=== PATIENT | male | born 1995 | race Caucasian/White ===

== ENCOUNTER 2016-10-07 04:09 | Emergency (ER) | payer BC ==
[2016-10-07] MEDS ORDERED: Ketorolac 30 MG/ML SDV IVPUSH ONE (04:56)
--- NOTE | 2016-10-07 04:57 | EDM.PDOC ---
<Rodrigo Ha - Last Filed: 10/07/16 07:16> ED HPI GENERAL MEDICAL PROBLEM - General Chief Complaint: Abdominal Pain Stated Complaint: LOWER RIGHT SIDE ABDOMINAL PAIN Time Seen by Provider: 10/07/16 04:35 Source of Information: Reports: Patient History Limitations: Reports: No Limitations - History of Present Illness INITIAL COMMENTS - FREE TEXT/NARRATIVE: HISTORY AND PHYSICAL: History of present illness: 21-year-old male with no significant past medical history and no prior abdominal history now complaining of sudden onset of abdominal pain in the middle of night which started suddenly immediately after ejaculating. Patient felt a weird sensation and then suprapubic pressure and then significant pain since. He had nausea and vomiting but no fevers chills sweats or shaking chills. No diarrhea. Patient was not ill and prior to his being sexually active he felt baseline. Review of systems: As per history of present illness and below otherwise all systems reviewed and negative. Past medical history: As per history of present illness and as reviewed below otherwise noncontributory. Surgical history: As per history of present illness and as reviewed below otherwise noncontributory. Social history: No reported history of drug or alcohol abuse. Family history: As per history of present illness and as reviewed below otherwise noncontributory. Physical exam: HEENT: Normocephalic, atraumatic, pupils normal and symmetrical, supple neck, no meningismus, normal color Lungs: Normal and symmetrical chest wall excursion bilateral with no tachypnea or increased work of breathing, grossly normal chest exam Heart: No tachycardia in triage Abdomen: Normal-appearing, nondistended, no visible mass or asymmetry, minimal diffuse tenderness no guarding or rebound. Normal bowel sounds. Nondistended no megaly Pelvis: Normal-appearing Genitourinary: Deferred Rectal exam: Deferred Extremities: Atraumatic, normal use and range of motion, no visible evidence of gross neurovascular compromise Neuro: Awake, alert, oriented. Normal and appropriate mental status. Cranial nerves grossly unremarkable. Motor function normal. Nonfocal neurologic exam. Diagnostics: [CT of the abdomen and pelvis pending Full laboratory workup pending] Therapeutics: [Toradol IV] Impression: [Abdominal pain] Plan: [Signs and symptoms consistent with possible retrograde ejaculation potentially with bladder spasm and resultant abdominal pain. No history of intra-abdominal pathology. Patient is hemodynamically stable. Full workup pending] CT returns with inability to visualize the appendix secondary to patient's paucity of intra-abdominal fat. Case discussed at length with Dr. Andre the teleradiology attending recommends by mouth contrast and repeat study after 1.5 hours, without which it will be impossible to definitively rule out appendicitis or other bowel pathology. Case discussed with Dr. Cunningham emergency medicine attending who will assume care reevaluate, further treatment in consultation as needed as well as disposition patient. Definitive disposition and diagnosis as appropriate pending reevaluation and review of above. Abdominal Pain Score (Numeric/FACES): 8 - Related Data Allergies Allergy/AdvReac Type Severity Reaction Status Date / Time No Known Allergies Allergy Verified 10/07/16 04:21 Home Meds: Home Meds . [No Known Home Meds] 10/07/16 [History] Past Medical History - Past Health History Medical/Surgical History: Denies Medical/Surgical History Social & Family History - Family History Family Medical History: Noncontributory - Tobacco Use Smoking Status *Q: Current Every Day Smoker Years of Tobacco use: 4 Packs/Tins Daily: 1 - Caffeine Use Caffeine Use: Reports: Soda Caffeine Use Comment: 2-3/day - Alcohol Use Days Per Week of Alcohol Use: 4 Number of Drinks Per Day: 2 Total Drinks Per Week: 8 - Recreational Drug Use Recreational Drug Use: No Course - Vital Signs Last Recorded V/S: Last Vital Signs Temp 36.4 C 10/07/16 06:36 Pulse 62 10/07/16 08:16 Resp 16 10/07/16 08:16 BP 111/67 10/07/16 08:16 Pulse Ox 98 10/07/16 08:16 - Orders/Labs/Meds Orders: Active Orders 24 hr Category Date Time Status Abdomen Pelvis w wo Cont [CT] Stat Exams 10/07/16 04:51 Taken Labs: Laboratory Tests 10/07/16 10/07/16 10/07/16 Range/Units 04:20 04:20 04:35 WBC 8.65 (4.0-11.0) K/uL RBC 4.63 (4.50-5.90) M/uL Hgb 14.9 (13.0-17.0) g/dL Hct 42.8 (38.0-50.0) % MCV 92.4 (80.0-98.0) fL MCH 32.2 H (27.0-32.0) pg MCHC 34.8 (31.0-37.0) g/dL RDW Std Deviation 42.4 (28.0-62.0) fl RDW Coeff of Hamlet 13 (11.0-15.0) % Plt Count 155 (150-400) K/uL MPV 11.10 (7.40-12.00) fL Neut % (Auto) 59.5 (48.0-80.0) % Lymph % (Auto) 28.3 (16.0-40.0) % Ceiba % (Auto) 8.4 (0.0-15.0) % Eos % (Auto) 3.5 (0.0-7.0) % Baso % (Auto) 0.3 (0.0-1.5) % Neut # (Auto) 5.1 (1.4-5.7) K/uL Lymph # (Auto) 2.5 H (0.6-2.4) K/uL Ceiba # (Auto) 0.7 (0.0-0.8) K/uL Eos # (Auto) 0.3 (0.0-0.7) K/uL Baso # (Auto) 0.0 (0.0-0.1) K/uL Nucleated RBC % 0.0 /100WBC Nucleated RBCs # 0 K/uL Sodium 141 (136-146) mmol/L Potassium 3.5 (3.5-5.1) mmol/L Chloride 110 (98-110) mmol/L Carbon Dioxide 21 (21-31) mmol/L BUN 12 (6.0-23.0) mg/dL Creatinine 0.9 (0.6-1.5) mg/dL Est Cr Clr Drug Dosing 139.49 mL/min Estimated GFR (MDRD) > 60.0 ml/min Glucose 116 H (60-110) mg/dL Calcium 9.2 (8.8-10.8) mg/dL Total Bilirubin 0.4 (0.1-1.5) mg/dL AST 39 (5-40) IU/L ALT 40 (8-54) IU/L Alkaline Phosphatase 65 (40-150) Total Protein 7.3 (6.0-8.0) g/dL Albumin 5.0 (3.5-5.0) g/dL Globulin 2.3 (2.0-3.5) g/dL Albumin/Globulin Ratio 2.2 (1.3-2.8) Lipase 28 (7-80) U/L Urine Color YELLOW Urine Appearance SLT CLOUDY Urine pH 7.0 (5.0-8.0) Ur Specific Sparks 1.020 (1.001-1.035) Urine Protein NEGATIVE (NEGATIVE) mg/dL Urine Glucose (UA) NEGATIVE (NEGATIVE) mg/dL Urine Ketones NEGATIVE (NEGATIVE) mg/dL Urine Occult Blood NEGATIVE (NEGATIVE) Urine Nitrite NEGATIVE (NEGATIVE) Urine Bilirubin NEGATIVE (NEGATIVE) Urine Urobilinogen 0.2 (<2.0) EU/dL Ur Leukocyte Esterase NEGATIVE (NEGATIVE) Urine RBC 0-3 (0-2/HPF) Urine WBC 0-1 (0-5/HPF) Ur Epithelial Cells RARE (NONE-FEW) Amorphous Sediment MODERATE (NEGATIVE) Urine Bacteria FEW (NEGATIVE) Meds: Medications Discontinued Medications Generic Name Dose Route Start Last Admin Trade Name Ricky PRN Reason Stop Dose Admin Iopamidol 92 ml 10/07/16 05:53 10/07/16 05:55 Isovue-370 (76%) IVPUSH 10/07/16 05:54 92 ml ONETIME STA Administration Ketorolac Tromethamine 30 mg 10/07/16 04:56 10/07/16 05:05 Toradol IVPUSH 10/07/16 04:57 30 mg ONETIME ONE Administration Departure - Departure Disposition: Against Medical Advice 07 Clinical Impression: Abdominal pain - Discharge Information Referrals: PCP,None [Primary Care Provider] - Forms: ED Department Discharge <Rene Whitlock - Last Filed: 10/07/16 08:38> ED HPI GENERAL MEDICAL PROBLEM - History of Present Illness INITIAL COMMENTS - FREE TEXT/NARRATIVE: Patient initialized by mouth contrast however was feeling much better and elected to sign out AGAINST MEDICAL ADVICE without actually performing the oral contrast CT study of his abdomen. Recommend that he return if symptoms persist or worsen follow-up with his primary care or urology ED ROS GENERAL - Review of Systems Review Of Systems: ROS reveals no pertinent complaints other than HPI. ED EXAM, GENERAL - Physical Exam Exam: See Below Departure - Departure Time of Disposition: 08:38 Condition: Fair
[2016-10-07 05:19] LABS: CHLORIDE,CL 110 mmol/L (98-110); SODIUM,NA 141 mmol/L (136-146)
[2016-10-07] MEDS ORDERED: Iopamidol 755 Mg/ML 100 ML Bottle IVPUSH STA (05:53)
[2016-10-07 08:17] VITALS: BP 111/67
--- NOTE | 2016-10-09 11:37 | CT ---
EXAM DATE: 10/07/16 PATIENT'S AGE: 21 Patient: OPAL WANG Facility: [place], [place] Site . Site : 1995 Study: CT Abdomen/Pelvis W/ and W/O Cont [id number]/[id number] 5:55:24 AM Ordering Physician: Doctor Sheriff Final Report: INDICATION: Right abdominal pain. TECHNIQUE: CT abdomen and pelvis with and without i.v. contrast. Coronal and sagittal reformats were obtained. COMPARISON: None FINDINGS: Lower chest: Unremarkable. Liver: Unremarkable. Spleen: Unremarkable. Pancreas: Unremarkable. Gallbladder and bile ducts: Unremarkable. Kidneys: Unremarkable. No kidney or ureteral stones and no hydronephrosis seen. Adrenal glands: Unremarkable. GI tract: Unremarkable. Evaluation of the bowel is limited in this patient due to the paucity of mesenteric and retroperitoneal fat. The appendix is not identified. Vascular: Unremarkable. Lymph nodes: Unremarkable. Miscellaneous: Unremarkable. No pneumoperitoneum is seen. No significant ascites is noted. Pelvic Organs: Unremarkable. Bones: Unremarkable for age. IMPRESSION: 1. Unremarkable CT appearance of the abdomen and pelvis. The appendix is not identified. Clinical follow up is recommended. Dictated by Nathanael Andre MD @ 10/07/2016 6:06:30 AM Prelim Report By Dr. Nathanael Andre @ 10/07/2016 6:06:51 AM ADDENDUM There are no definite inflammatory changes seen in the right lower quadrant but the sensitivity is diminished due to the paucity of intra-abdominal fat in this patient. This can also limit the sensitivity in detecting trace amounts of pneumoperitoneum as the bowel loops are collapsed and apposed to one another. I discussed this with Dr. Ha by telephone at 6:45 a.m. Dictated by: MD @ 10/07/2016 06:53:26 (Electronic Signature) Report Signed by Proxy. [facility] HOSPITALFady
== END 2016-10-07 08:28 | disposition left against medical advice (07) ==
LOC: MW.ED 04:09
DX: R10.9 Unspecified abdominal pain (principal); F17.210 Nicotine dependence, cigarettes, uncomplicated
CPT/HCPCS: 74178; 80053; 81001; 83690; 85025; 96374; 99284; J1885; Q9967

== ENCOUNTER 2017-04-06 17:04 | Emergency (ER) | payer BC ==
--- NOTE | 2017-04-06 17:28 | EDM.PDOC ---
ED HPI GENERAL MEDICAL PROBLEM - General Chief Complaint: Respiratory Problem Stated Complaint: HEADACHE, STOMACHE AND CHEST TIGHTNESS Time Seen by Provider: 04/06/17 17:12 Source of Information: Reports: Patient History Limitations: Reports: No Limitations - History of Present Illness INITIAL COMMENTS - FREE TEXT/NARRATIVE: HISTORY AND PHYSICAL: History of present illness: Patient is a 21-year-old male who presents to the emergency room today with multiple complaints. He states on 03/30/2017, he started to have hives and generalized body aches. He decided to go to the emergency room and [place], [place] on 04/03/2017, for the previously stated symptoms. That morning he developed some lightheadedness, shortness of breath, chest pain. He states that the ER did a nebulizer treatment, he felt somewhat improved at that time and he was discharged with an inhaler. At that time he says no lab or radiology imaging was done. Today he presents to the emergency room because he still has those symptoms and since has developed a productive cough and sore throat with subjective swelling. His girlfriend reports that he has been using his inhaler more than he is supposed to. He has been using it 3 times per hour when needed. Patient denies any fever, nausea, vomiting or diarrhea. Has not received the [id number] influenza vaccine Review of systems: As per history of present illness and below otherwise all systems reviewed and negative. Past medical history: As per history of present illness and as reviewed below otherwise noncontributory. Surgical history: As per history of present illness and as reviewed below otherwise noncontributory. Social history: No reported history of drug or alcohol abuse. Family history: As per history of present illness and as reviewed below otherwise noncontributory. Physical exam: Gen.: Well-developed and well-nourished 21-year-old male. Appears nontoxic and in no acute distress. Alert and oriented. HEENT: Atraumatic, normocephalic, pupils reactive, negative for conjunctival pallor or scleral icterus, mucous membranes moist, throat clear without erythema or exudate, neck supple, nontender, trachea midline. No trismus or drooling noted. Lungs: Clear to auscultation, breath sounds equal bilaterally, chest nontender. Heart: S1S2, regular rate and rhythm without overt murmurs Abdomen: Soft, nondistended, nontender. Negative for masses or hepatosplenomegaly. Negative for costovertebral tenderness. Pelvis: Stable nontender. Genitourinary: Deferred. Rectal: Deferred. Extremities: Atraumatic, moves all extremities per self, full range of motion, negative for cords or calf pain. Neurovascular unremarkable. Skin: No obvious lesions, masses, rashes. Intact, warm, dry. Neuro: Awake, alert, oriented. Cranial nerves II through XII unremarkable. Cerebellum unremarkable. Motor and sensory unremarkable throughout. Exam nonfocal. Patient is resting on the cot and drinking Mountain Dew, patient is on his cell phone during the interview. He breathes easy even in able to speak in full sentences without shortness of breath. All lab testing and x-ray are normal today. Will prescribe the patient with a Medrol Dosepak and Cataflam prescription. He may continue to use his rescue inhaler as needed. Advised him to only use 1-2 puffs every 4-6 hours as needed. Diagnostics: CBC, CMP, influenza, strep, 2 view chest x-ray Therapeutics: IV fluid, Solu-Medrol Impression: Viral illness Bronchitis Plan: 1. You may continue to use your inhaler as needed. Please limit it to 1-2 puffs every 4-6 hours. 2. Prescription for Medrol Dosepak, steroid, has been prescribed for you. Cataflam, anti-inflammatory, has also been prescribed for your body aches/chest discomfort. Please is do not take any additional NSAIDs such as ibuprofen or Aleve with this medication. You may take Tylenol as needed. 3. Continue with supportive care and increase her fluids. 4. Follow-up with your primary care provider in the next 1-2 days. Return to the ED as needed and as discussed. Definitive disposition and diagnosis as appropriate pending reevaluation and review of above. Duration: Week(s): (1) Location: Reports: Chest generalized Pain Score (Numeric/FACES): 5 - Related Data Allergies Allergy/AdvReac Type Severity Reaction Status Date / Time No Known Allergies Allergy Verified 04/06/17 17:27 Home Meds: Home Meds Albuterol Sulfate [Proair Hfa] 8.5 gm INH DAILY 04/06/17 [History] Cetirizine [ZyrTEC] 10 mg PO DAILY 04/06/17 [History] Ranitidine [Zantac] 150 mg PO DAILY 04/06/17 [History] Past Medical History - Past Health History Medical/Surgical History: Denies Medical/Surgical History Social & Family History - Family History Family Medical History: Noncontributory - Tobacco Use Smoking Status *Q: Current Every Day Smoker Years of Tobacco use: 4 Packs/Tins Daily: 1 - Caffeine Use Caffeine Use: Reports: Soda Caffeine Use Comment: 2-3/day - Alcohol Use Days Per Week of Alcohol Use: 4 Number of Drinks Per Day: 2 Total Drinks Per Week: 8 - Recreational Drug Use Recreational Drug Use: No ED ROS GENERAL - Review of Systems Review Of Systems: ROS reveals no pertinent complaints other than HPI. ED EXAM, GENERAL - Physical Exam Exam: See Below (See dictation) Course - Vital Signs Last Recorded V/S: Last Vital Signs Temp 97.7 F 04/06/17 17:24 Pulse 72 04/06/17 17:24 Resp 18 04/06/17 17:24 BP 130/73 04/06/17 17:24 Pulse Ox 98 04/06/17 17:24 - Orders/Labs/Meds Orders: Active Orders 24 hr Category Date Time Status Chest 2V [CR] Stat Exams 04/06/17 17:27 Taken CULTURE STREP A CONFIRMATION [RM] Stat Lab 04/06/17 16:00 Results STREP SCRN A RAPID W CULT CONF [RM] Stat Lab 04/06/17 16:00 Results Labs: Laboratory Tests 04/06/17 04/06/17 Range/Units 17:56 17:56 WBC 8.61 (4.0-11.0) K/uL RBC 4.91 (4.50-5.90) M/uL Hgb 15.7 (13.0-17.0) g/dL Hct 44.6 (38.0-50.0) % MCV 90.8 (80.0-98.0) fL MCH 32.0 (27.0-32.0) pg MCHC 35.2 (31.0-37.0) g/dL RDW Std Deviation 40.6 (28.0-62.0) fl RDW Coeff of [place] 12 (11.0-15.0) % Plt Count 135 L (150-400) K/uL MPV 11.00 (7.40-12.00) fL Neut % (Auto) 70.9 (48.0-80.0) % Lymph % (Auto) 16.8 (16.0-40.0) % Hunt % (Auto) 9.9 (0.0-15.0) % Eos % (Auto) 2.2 (0.0-7.0) % Baso % (Auto) 0.2 (0.0-1.5) % Neut # (Auto) 6.1 H (1.4-5.7) K/uL Lymph # (Auto) 1.5 (0.6-2.4) K/uL Hunt # (Auto) 0.9 H (0.0-0.8) K/uL Eos # (Auto) 0.2 (0.0-0.7) K/uL Baso # (Auto) 0.0 (0.0-0.1) K/uL Nucleated RBC % 0.0 /100WBC Nucleated RBCs # 0 K/uL Sodium 140 (136-146) mmol/L Potassium 4.6 (3.5-5.1) mmol/L Chloride 107 (98-110) mmol/L Carbon Dioxide 24 (21-31) mmol/L BUN 13 (6.0-23.0) mg/dL Creatinine 0.8 (0.6-1.5) mg/dL Est Cr Clr Drug Dosing 158.97 mL/min Estimated GFR (MDRD) > 60.0 ml/min Glucose 118 H (60-110) mg/dL Calcium 9.1 (8.8-10.8) mg/dL Total Bilirubin 1.0 (0.1-1.5) mg/dL AST 23 (5-40) IU/L ALT 21 (8-54) IU/L Alkaline Phosphatase 40 (40-150) Total Protein 7.7 (6.0-8.0) g/dL Albumin 4.7 (3.5-5.0) g/dL Globulin 3.0 (2.0-3.5) g/dL Albumin/Globulin Ratio 1.6 (1.3-2.8) Meds: Medications Discontinued Medications Generic Name Dose Route Start Last Admin Trade Name Freq PRN Reason Stop Dose Admin Sodium Chloride 1,000 mls @ 999 mls/hr 04/06/17 17:33 04/06/17 17:58 Normal Saline IV 04/06/17 18:33 999 mls/hr STAT ONE Administration Ketorolac Tromethamine 30 mg 04/06/17 17:51 04/06/17 17:58 Toradol IVPUSH 04/06/17 17:52 30 mg ONETIME ONE Administration Methylprednisolone Sodium Succinate 125 mg 04/06/17 17:33 04/06/17 17:58 Solu-Medrol IVPUSH 04/06/17 17:34 125 mg ONETIME ONE Administration Departure - Departure Time of Disposition: 18:37 Disposition: Home, Self-Care 01 Clinical Impression: Viral respiratory illness, Bronchitis - Discharge Information Referrals: PCP,None [Primary Care Provider] - Forms: ED Department Discharge Additional Instructions: My general discharge The following information is given to patients seen in the emergency department who are being discharged to home. This information is to outline your options for follow-up care. We provide all patients seen in our emergency department with a follow-up referral. The need for follow-up, as well as the timing and circumstances, are variable depending upon the specifics of your emergency department visit. If you don't have a primary care physician on staff, we will provide you with a referral. We always advise you to contact your personal physician following an emergency department visit to inform them of the circumstance of the visit and for follow-up with them and/or the need for any referrals to a consulting specialist. The emergency department will also refer you to a specialist when appropriate. This referral assures that you have the opportunity for follow-up care with a specialist. All of these measure are taken in an effort to provide you with optimal care, which includes your follow-up. Under all circumstances we always encourage you to contact your private physician who remains a resource for coordinating your care. When calling for follow-up care, please make the office aware that this follow-up is from your recent emergency room visit. If for any reason you are refused follow-up, please contact the [facility] Emergency Department at and asked to speak to the emergency department charge nurse. [facility] [address] [place] [id number] 1. You may continue to use your inhaler as needed. Please limit it to 1-2 puffs every 4-6 hours. 2. Prescription for Medrol Dosepak, steroid, has been prescribed for you. Cataflam, anti-inflammatory, has also been prescribed for your body aches/chest discomfort. Please is do not take any additional NSAIDs such as ibuprofen or Aleve with this medication. You may take Tylenol as needed. 3. Continue with supportive care and increase her fluids. 4. Follow-up with your primary care provider in the next 1-2 days. Return to the ED as needed and as discussed. - My Orders Last 24 Hours: My Active Orders 04/06/17 16:00 CULTURE STREP A CONFIRMATION [RM] Stat STREP SCRN A RAPID W CULT CONF [RM] Stat 04/06/17 17:27 Chest 2V [CR] Stat - Assessment/Plan Last 24 Hours: My Active Orders 04/06/17 16:00 CULTURE STREP A CONFIRMATION [RM] Stat STREP SCRN A RAPID W CULT CONF [RM] Stat 04/06/17 17:27 Chest 2V [CR] Stat
[2017-04-06] MEDS ORDERED: Sodium Chloride 0.9% 1,000 ML IV ONE (17:33)
[2017-04-06] MEDS ORDERED: methylPREDNISolone Sodium Succinate 125 MG/2 ML SDV IVPUSH ONE (17:33)
[2017-04-06] MEDS ORDERED: Ketorolac 30 MG/ML SDV IVPUSH ONE (17:51)
[2017-04-06 18:28] LABS: CHLORIDE,CL 107 mmol/L (98-110); SODIUM,NA 140 mmol/L (136-146)
[2017-04-06 18:56] VITALS: BP 133/63
--- NOTE | 2017-04-09 12:44 | CR ---
EXAM DATE: 04/06/17 PATIENT'S AGE: 21 Patient: OPAL WANG Facility: [place], [place] Site . Site : 1995 Study: XRay Chest [id number]/15/2017 6:05:43 PM Ordering Physician: Doctor Sheriff Final Report: CHEST 2 VIEWS INDICATION: Cough. IMPRESSION: Normal heart size and vascular pattern. Lungs are clear. No pneumothorax or pleural abnormality. Dictated by Steven Weir MD @ Apr 06 2017 6:25PM (Electronic Signature) Report Signed by Proxy. JEMAL
== END 2017-04-06 18:50 | disposition home or self-care (01) ==
LOC: MW.ED 17:04
DX: B34.9 Viral infection, unspecified (principal); J40 Bronchitis, not specified as acute or chronic; F17.210 Nicotine dependence, cigarettes, uncomplicated; Z79.899 Other long term (current) drug therapy
CPT/HCPCS: 71020; 80053; 85025; 87081; 87804; 87880; 96361; 96374; 96375; 99284; J1885; J2930; J7040

== ENCOUNTER 2018-08-21 17:29 | Emergency (ER) | payer BC ==
[2018-08-21] MEDS ORDERED: Diphtheria,Pertussis(Acell),Tetanus Vaccine 0.5 ML Syringe IM ONE (18:44)
--- NOTE | 2018-08-21 18:44 | EDM.PDOC ---
ED HPI GENERAL MEDICAL PROBLEM - General Chief Complaint: Laceration Stated Complaint: LEFT INDEX FINGER CUT Time Seen by Provider: 08/21/18 18:38 - History of Present Illness INITIAL COMMENTS - FREE TEXT/NARRATIVE: HISTORY AND PHYSICAL: History of present illness: The patient is a 23-year-old male who is right-hand dominant and unsure of his last tetanus shot and presents after cutting his left index finger while he was cutting an apple at home. This occurred several hours ago and it wouldn't stop bleeding so he came here for evaluation. He denies any other injuries. He has no neurosensory changes in the finger and is able to flex and extend. He was in his usual state of good health prior to these events. Review of systems: As per history of present illness and below otherwise all systems reviewed and negative. Past medical history: As per history of present illness and as reviewed below otherwise noncontributory. Surgical history: As per history of present illness and as reviewed below otherwise noncontributory. Social history: No reported history of drug or alcohol abuse. Family history: As per history of present illness and as reviewed below otherwise noncontributory. Physical exam: HEENT: Atraumatic, normocephalic, negative for conjunctival pallor or scleral icterus, mucous membranes moist, throat clear, neck supple, nontender, trachea midline. Lungs: Clear to auscultation, breath sounds equal bilaterally, chest nontender. Heart: S1S2, regular and rhythm no overt murmurs Abdomen: Soft, nondistended, nontender. Pelvis: Deferred Genitourinary: Deferred. Rectal: Deferred. Extremities: Atraumatic, full range of motion of all extremities with the exception of left index finger where at the distal tuft soft tissue there is a curved flap-like laceration seen which does not involve the nail or nailbed and measures approximately 2.5 cm and has some oozing of blood. The patient can flex at the tip of the finger and there are no palpable bony deformities and there was no crush injury with this. The remainder the digits are intact without tenderness defects or deformities as is the hand and the proximal forearm. Neurovascular unremarkable. Neuro: Awake, alert, oriented. Cranial nerves II through XII unremarkable. Cerebellum unremarkable. Motor and sensory unremarkable throughout. Exam nonfocal. Diagnostics: None Therapeutics: Tdap, wound cleansing, lidocaine without epinephrine for suturing, bacitracin and tube gauze Procedure note: After the wound was cleansed by nursing The area was iniltrated with a digital block with 1%lidocaine without epiephrine and the wound was exploed. No foreign bodies were appreciated. The skin edges were reapproxiated using a total number of #8 sutures in a simple interrupted fashion of 5-0 nylon . There were no complications and the patient tolerated the procedure well. Bacitracin and a tube gauze was applied by nursing. The procedure was performed by Cheryl Cody NP Impression: Left index finger laceration Definitive disposition and diagnosis as appropriate pending reevaluation and review of above. laceration to L index finger Pain Score (Numeric/FACES): 2 - Related Data Allergies Allergy/AdvReac Type Severity Reaction Status Date / Time No Known Allergies Allergy Verified 08/21/18 17:54 Home Meds: Home Meds . [No Known Home Meds] 08/21/18 [History] Past Medical History - Past Health History Medical/Surgical History: Denies Medical/Surgical History HEENT History: Reports: None Cardiovascular History: Reports: None Respiratory History: Reports: None Gastrointestinal History: Reports: None Genitourinary History: Reports: None Musculoskeletal History: Reports: None Neurological History: Reports: None Psychiatric History: Reports: None Endocrine/Metabolic History: Reports: None Hematologic History: Reports: None Immunologic History: Reports: None Oncologic (Cancer) History: Reports: None Dermatologic History: Reports: None - Past Surgical History Head Surgeries/Procedures: Reports: None HEENT Surgical History: Reports: None Cardiovascular Surgical History: Reports: None Respiratory Surgical History: Reports: None GI Surgical History: Reports: None Male Surgical History: Reports: None Endocrine Surgical History: Reports: None Neurological Surgical History: Reports: None Musculoskeletal Surgical History: Reports: None Dermatological Surgical History: Reports: None Social & Family History - Family History Family Medical History: Noncontributory - Tobacco Use Smoking Status *Q: Never Smoker - Caffeine Use Caffeine Use: Reports: Soda Caffeine Use Comment: 2-3/day - Recreational Drug Use Recreational Drug Use: No ED ROS GENERAL - Review of Systems Review Of Systems: ROS reveals no pertinent complaints other than HPI. ED EXAM, SKIN/RASH Exam: See Below (see Dictation) Course - Vital Signs Last Recorded V/S: Last Vital Signs Temp 37.0 C 05/01/19 17:52 Pulse 81 08/21/18 17:52 Resp 15 08/21/18 17:52 BP 112/66 08/21/18 17:52 Pulse Ox 98 08/21/18 17:52 - Orders/Labs/Meds Orders: Active Orders 24 hr Category Date Time Status Communication Order [RC] STAT Care 08/21/18 18:43 Active Vaccines to be Administered [RC] PER UNIT ROUTINE Care 08/21/18 18:44 Active Meds: Medications Discontinued Medications Generic Name Dose Route Start Last Admin Trade Name Ricky PRN Reason Stop Dose Admin Bacitracin 1 dose 08/21/18 18:53 Bacitracin Oint 1 Gm TOP 08/21/18 18:54 ONETIME ONE Diphtheria/Tetanus/Acell Pertussis 0.5 ml 08/21/18 18:44 Adacel IM 08/21/18 18:45 .ONCE ONE Lidocaine HCl 5 ml 08/21/18 18:43 Xylocaine-Mpf 1% INJECT 08/21/18 18:44 ONETIME ONE Departure - Departure Time of Disposition: 19:21 Disposition: Home, Self-Care 01 Condition: Good Clinical Impression: Laceration of left index finger Qualifiers: Encounter type: initial encounter Damage to nail status: without damage Foreign body presence: without foreign body Qualified Code(s): S61.211A - Laceration without foreign body of left index finger without damage to nail, initial encounter - Discharge Information Referrals: PCP,None [Primary Care Provider] - Forms: ED Department Discharge Additional Instructions: The following information is given to patients seen in the emergency department who are being discharged to home. This information is to outline your options for follow-up care. We provide all patients seen in our emergency department with a follow-up referral. The need for follow-up, as well as the timing and circumstances, are variable depending upon the specifics of your emergency department visit. If you don't have a primary care physician on staff, we will provide you with a referral. We always advise you to contact your personal physician following an emergency department visit to inform them of the circumstance of the visit and for follow-up with them and/or the need for any referrals to a consulting specialist. The emergency department will also refer you to a specialist when appropriate. This referral assures that you have the opportunity for followup care with a specialist. All of these measure are taken in an effort to provide you with optimal care, which includes your followup. Under all circumstances we always encourage you to contact your private physician who remains a resource for coordinating your care. When calling for followup care, please make the office aware that this follow-up is from your recent emergency room visit. If for any reason you are refused follow-up, please contact the [facility] emergency department at and ask to speak to the emergency department charge nurse. [facility] Primary care- Internal Medicine and Family [address] [address] Keep the dressing on that was placed in the ED for the next 24 hours and then remove the dressing cleanse with mild soap and water and pat dry. Apply bacitracin Neosporin for the next 2 days and then stop the ointment. You should cleanse the area at least twice a day. Try to leave the wound open to air and do not use Band-Aids and if you need to cover please use a gauze dressing. Return to the ER in 7 days for suture removal or you may also see her provider in the clinic for suture removal. Return to ER sooner as needed as discussed - My Orders Last 24 Hours: My Active Orders 08/21/18 18:43 Communication Order [RC] STAT 08/21/18 18:44 Vaccines to be Administered [RC] PER UNIT ROUTINE - Assessment/Plan Last 24 Hours: My Active Orders 08/21/18 18:43 Communication Order [RC] STAT 08/21/18 18:44 Vaccines to be Administered [RC] PER UNIT ROUTINE
[2018-08-21] MEDS ORDERED: Bacitracin Oint 1 GM U/D Packet TOP ONE (18:53)
[2018-08-21 19:33] VITALS: BP 106/46
== END 2018-08-21 19:27 | disposition home or self-care (01) ==
LOC: MW.ED 17:29
DX: S61.211A Laceration without foreign body of left index finger without damage to nail, initial encounter (principal); Z23 Encounter for immunization; W45.8XXA Other foreign body or object entering through skin, initial encounter
CPT/HCPCS: 12001; 90471; 90715; 99282; J2001

== ENCOUNTER 2018-08-22 11:47 | Emergency (ER) | payer BC ==
--- NOTE | 2018-08-22 11:54 | EDM.PDOC ---
ED HPI GENERAL MEDICAL PROBLEM - General Stated Complaint: bleeding through stitches Time Seen by Provider: 08/22/18 11:51 - History of Present Illness INITIAL COMMENTS - FREE TEXT/NARRATIVE: HISTORY AND PHYSICAL: History of present illness: The patient is a 23-year-old male who was seen here yesterday after sustaining a cut to his left index finger while cutting an apple at home. The patient was given a tetanus shot and wound care and sutures were placed to close a 2.5 cm laceration. Prior to suturing there was a lot of oozing from the wound and when the patient was discharged hemostasis had been achieved. The patient returns today saying that he went to work today and has been using his finger and it started bleeding again and he has gone through 3 dressings. He has no other complaints. Review of systems: As per history of present illness and below otherwise all systems reviewed and negative. Past medical history: As per history of present illness and as reviewed below otherwise noncontributory. Surgical history: As per history of present illness and as reviewed below otherwise noncontributory. Social history: No reported history of drug or alcohol abuse. Family history: As per history of present illness and as reviewed below otherwise noncontributory. Physical exam: HEENT: Atraumatic, normocephalic, negative for conjunctival pallor or scleral icterus, mucous membranes moist, throat clear, neck supple, nontender, trachea midline. Lungs: Deferred Heart: Deferred Abdomen: Deferred. Pelvis: Deferred. Genitourinary: Deferred. Rectal: Deferred. Extremities: Atraumatic, full range of motion of all extremities except the left index finger. At the left index finger sutures are seen which are intact and there is no swelling no erythema and no active bleeding noted. There is some clotted blood along the suture line.. Neurovascular unremarkable. Neuro: Awake, alert, oriented. Motor and sensory unremarkable throughout. Exam nonfocal. Diagnostics: none Therapeutics: Surgicel and tube gauze was replaced Impression: Wound reevaluation status post left index finger laceration Definitive disposition and diagnosis as appropriate pending reevaluation and review of above. right index finger Pain Score (Numeric/FACES): 1 - Related Data Allergies Allergy/AdvReac Type Severity Reaction Status Date / Time No Known Allergies Allergy Verified 08/22/18 11:55 Home Meds: Home Meds . [No Known Home Meds] 08/21/18 [History] Past Medical History - Past Health History Medical/Surgical History: Denies Medical/Surgical History HEENT History: Reports: None Cardiovascular History: Reports: None Respiratory History: Reports: None Gastrointestinal History: Reports: None Genitourinary History: Reports: None Musculoskeletal History: Reports: None Neurological History: Reports: None Psychiatric History: Reports: None Endocrine/Metabolic History: Reports: None Hematologic History: Reports: None Immunologic History: Reports: None Oncologic (Cancer) History: Reports: None Dermatologic History: Reports: None - Past Surgical History Head Surgeries/Procedures: Reports: None HEENT Surgical History: Reports: None Cardiovascular Surgical History: Reports: None Respiratory Surgical History: Reports: None GI Surgical History: Reports: None Male Surgical History: Reports: None Endocrine Surgical History: Reports: None Neurological Surgical History: Reports: None Musculoskeletal Surgical History: Reports: None Dermatological Surgical History: Reports: None Social & Family History - Family History Family Medical History: Noncontributory - Caffeine Use Caffeine Use: Reports: Soda Caffeine Use Comment: 2-3/day ED ROS GENERAL - Review of Systems Review Of Systems: ROS reveals no pertinent complaints other than HPI. ED EXAM, GENERAL - Physical Exam Exam: See Below (See dictation) Course - Vital Signs Last Recorded V/S: Last Vital Signs Temp 36.4 C 08/22/18 11:53 Pulse 67 08/22/18 11:53 Resp 16 08/22/18 11:53 BP 117/63 08/22/18 11:53 Pulse Ox 97 08/22/18 11:53 - Orders/Labs/Meds Orders: Active Orders 24 hr Category Date Time Status Communication Order [RC] STAT Care 08/22/18 12:02 Ordered Departure - Departure Time of Disposition: 12:04 Disposition: Home, Self-Care 01 Condition: Good Clinical Impression: Encounter for evaluation of wound - Discharge Information Referrals: PCP,None [Primary Care Provider] - Additional Instructions: The following information is given to patients seen in the emergency department who are being discharged to home. This information is to outline your options for follow-up care. We provide all patients seen in our emergency department with a follow-up referral. The need for follow-up, as well as the timing and circumstances, are variable depending upon the specifics of your emergency department visit. If you don't have a primary care physician on staff, we will provide you with a referral. We always advise you to contact your personal physician following an emergency department visit to inform them of the circumstance of the visit and for follow-up with them and/or the need for any referrals to a consulting specialist. The emergency department will also refer you to a specialist when appropriate. This referral assures that you have the opportunity for followup care with a specialist. All of these measure are taken in an effort to provide you with optimal care, which includes your followup. Under all circumstances we always encourage you to contact your private physician who remains a resource for coordinating your care. When calling for followup care, please make the office aware that this follow-up is from your recent emergency room visit. If for any reason you are refused follow-up, please contact the [facility] emergency department at and ask to speak to the emergency department charge nurse. [facility] Primary care- [place] [address] Please continue to follow your discharge instructions from yesterday with suture removal in 6 days here in the ED or with your provider in the clinic. Please leave dressing on that was placed here in the ED for the next 24 hours. Then you can remove the dressing and cleanse with mild soap and water pat dry and apply bacitracin or Neosporin. Please refrain from using the finger until the sutures removed - My Orders Last 24 Hours: My Active Orders 08/22/18 12:02 Communication Order [RC] STAT - Assessment/Plan Last 24 Hours: My Active Orders 08/22/18 12:02 Communication Order [RC] STAT
[2018-08-22 12:29] VITALS: BP 120/63
== END 2018-08-22 12:26 | disposition home or self-care (01) ==
LOC: MW.ED 11:47
DX: S61.211D Laceration without foreign body of left index finger without damage to nail, subsequent encounter (principal); W45.8XXD Other foreign body or object entering through skin, subsequent encounter
CPT/HCPCS: 99282

== ENCOUNTER 2024-01-16 10:56 | Emergency (ER) | payer OTHER, BC ==
[2024-01-16] MEDS: Sodium Chloride 0.9% 1,000 ML IV ONE ×2 (11:03→11:36)
[2024-01-16] MEDS ORDERED: Sodium Chloride 0.9% 2.5 ML Syringe FLUSH PRN ×2 (11:08)
[2024-01-16] MEDS ORDERED: Sodium Chloride 0.9% 10 ML Syringe FLUSH PRN ×2 (11:08)
[2024-01-16 11:16] LABS: HEMATOCRIT 43.3 % (42.0-52.0); HEMOGLOBIN 14.3 g/dL (14.0-18.0); MEAN CORPUSCULAR VOLUME 93.7 fL (83.0-99.0); MEAN PLATELET VOLUME 10.9 fL (9.4-12.4); NRBC ABSOLUTE 0.03 K/uL (0.00-0.02); NRBC PERCENT 0.2 /100WBC (0.0-0.2); PLATELET COUNT,PLT 182 K/uL (150-400); RED BLOOD CELL COUNT 4.62 M/uL (4.52-5.90); WHITE BLOOD CELL COUNT,WBC 17.21 K/uL (3.9-11.3)
[2024-01-16 11:24] LABS: INR 1.51 (0.86-1.11)
[2024-01-16] MEDS: Rocuronium 100 MG/10 ML MDV IVPUSH ONE (11:29)
[2024-01-16 11:38] LABS: ABNORMAL LYMPHOCYTES FEW; BAND ABSOLUTE MAN 2.93; BAND PERCENT MAN 17 %; LYMPHOCYTES ABSOLUTE MAN 6.02 K/uL (1.00-4.80); LYMPHOCYTES PERCENT MAN 35 % (24-44); METAMYELOCYTE ABSOLUTE MAN 0.34; METAMYELOCYTE PERCENT MAN 2 %; MONOCYTES ABSOLUTE MAN 0.52 K/uL (0.00-0.80); MONOCYTES PERCENT MAN 3 % (0-8); MYELOCYTE ABSOLUTE MAN 0.69; MYELOCYTE PERCENT MAN 4 %; SEG NEUTROPHILS ABSOLUTE MAN 6.71 K/uL (1.80-7.70); SEG NEUTROPHILS PERCENT MAN 39 % (41-71)
[2024-01-16] MEDS: Norepinephrine Bit/D5W Premix 250 ML IV SCH ×3 (11:41→19:24)
[2024-01-16 11:46] LABS: A/G RATIO 1.4 (0.9-1.6); ALANINE AMINOTRANSFERASE,ALT 59 IU/L (14-63); ALBUMIN 3.6 g/dL (3.4-5.0); ALKALINE PHOSPHATASE 88 U/L (46-116); ASPARTATE AMNIOTRANSFERASE,AST 80 IU/L (15-37); BILIRUBIN TOTAL 0.9 mg/dL (0.2-1.0); BLOOD UREA NITROGEN,BUN 14 mg/dL (7.0-18.0); CALCIUM 8.4 mg/dL (8.5-10.1); CARBON DIOXIDE,CO2 26.1 mmol/L (21.0-32.0); CHLORIDE,CL 102 mmol/L (98-107); CREATININE 1.8 mg/dL (0.8-1.3); EST CRCL DRUG DOSING (CG) 60.55 mL/min; ETHANOL BLOOD MEDICAL <3 mg/dL; GLUCOSE RANDOM 419 mg/dL (74-106); LIPASE 60 U/L (16-77); POTASSIUM,K 3.1 mmol/L (3.5-5.1); PROTEIN TOTAL,TP 6.1 g/dL (6.4-8.2); SODIUM,NA 138 mmol/L (136-148)
[2024-01-16] MEDS: Tranexamic Acid 1,000 MG/10 ML Vial IVPUSH STA (11:47)
[2024-01-16 12:01] LABS: ESTIMATED GFR 52 mL/min (>60)
[2024-01-16 17:12] VITALS: BP 53/31; PULSE 107
[2024-01-16] MEDS: Tranexamic Acid 1,000 MG/10 ML Vial ONE (18:58)
[2024-01-16] MEDS: Tranexamic Acid 1,000 MG in Sodium Chloride 0.9% 100 ML IV ONE ×2 (18:59→19:04)
[2024-01-16] MEDS: [UNRECOGNIZED DRUG - OTHER] ONE (19:19)
[2024-01-16] MEDS: DEXTROSE ONE (19:19)
[2024-01-16] MEDS: Norepinephrine Bit/D5W Premix 250 ML ONE ×2 (19:19)
[2024-01-16] MEDS: EPINEPHrine 1:10,000 1 MG/10 ML Syringe IVPUSH ONE ×3 (19:29→19:33)
[2024-01-16] MEDS: Sodium Bicarbonate 8.4% 50 MEQ/50 ML Syringe IVPUSH ONE (19:37)
== END 2024-01-16 13:34 ==
LOC: MW.ED 10:56
DX: S00.03XA Contusion of scalp, initial encounter (principal); V89.2XXA Person injured in unspecified motor-vehicle accident, traffic, initial encounter; Y92.410 Unspecified street and highway as the place of occurrence of the external cause
CPT/HCPCS: 32551; 36415; 36430; 43752; 51702; 71045; 80053; 80307; 83690; 85025; 85610; 86850; 86900; 86901; 86920; 96365; 96366; 96375; 99291; 99292; G0390; J0171; J7030; P9016; 31500; 36556; 36620; 99285; J3490